=== PATIENT | female | born 1940 | race Caucasian/White ===

== ENCOUNTER 2020-06-13 12:24 | Emergency (ER) | payer MEDICARE, SELFPAY ==
[2020-06-13 12:40] VITALS: BP 144/70; PULSE 83; RESP 20; TEMP 36.6; O2SAT 98
--- NOTE | 2020-06-13 13:16 | ED.URI ---
HPI - URI/Sore Throat General Chief Complaint: Upper Respiratory Infection Stated Complaint: upper respiratory infection Time Seen by Provider: 06/13/20 12:58 Source: patient and RN notes reviewed Mode of arrival: ambulatory Limitations: no limitations History of Present Illness HPI Narrative: Patient presents today with a 7+ day history of right-sided nasal congestion, right ear pain, right sore throat pain. She has tried Tylenol and ibuprofen. Denies cough, fever. No known COVID-19 exposure. Denies history of seasonal allergies. MD elicited complaint: sore throat Related Data Home Medications Medication Instructions Recorded Confirmed calcium carbonate 500 mg calcium 500 mg PO BID 08/23/19 06/13/20 (1,250 mg) tablet multivitamin 1 tablet PO DAILY 09/17/19 06/13/20 Allergies Allergy/AdvReac Type Severity Reaction Status Date / Time aspirin Allergy Unknown Unknown Verified 09/30/19 11:36 Penicillins Allergy Unknown Unknown Verified 09/30/19 11:36 Review of Systems Review of Systems: Narrative: CONSTITUTIONAL: Denies body aches, fever, chills, or sweats. EYES: Denies visual changes, redness, or discharge. ENT: Denies rhinorrhea. + Congestion, sore throat, right ear pain CARDIOVASCULAR: Denies chest pain, palpitations, or edema. RESPIRATORY: Denies cough or dyspnea. GASTROINTESTINAL: Denies abdominal pain, nausea, vomiting, or diarrhea. GENITOURINARY: Denies dysuria or hematuria. SKIN: Denies rash, itching, or wounds. MUSCULOSKELETAL: Denies back pain, joint pain, or myalgia. NEUROLOGIC: Denies headache, numbness, tingling, or weakness. PSYCH: Denies depression or anxiety. [facility] Past Medical History Medical History (Updated 06/13/20 @ 13:18 by Charissa Vargas, [employer], ) Encounter for vitamin deficiency screening Social History Social History Smoking end date: 10/09/78 Alcohol intake: never Gender identity (if verbalized by the patient): Female Comments At time of signature, I have reviewed and agree with nursing past medical, surgical, social and family history unless otherwise noted. Please see nursing chart for further information. There is no relevant family history pertinent to the presenting complaint Exam Narrative: Exam Narrative: GENERAL: Well-appearing, well-nourished, and in no acute distress. HEAD: Normocephalic, atraumatic. EYES: EOMI. No redness or drainage. Conjunctivae normal. ENT: Mucous membranes pink and moist. Nares clear. Nasal turbinates normal. No rhinorrhea. TMs with moderate amount of clear fluid causing bulging. Moderate thin, white post nasal drainage noted in posterior oropharynx. Throat without edema, erythema, or exudate. Uvula midline. NECK: Normal AROM. Supple. No lymphadenopathy. CHEST: No respiratory distress. Clear to auscultation. HEART: Regular rate and rhythm. No murmur appreciated. Normal peripheral pulses. EXTREMITIES: Normal range of motion. No edema. SKIN: Warm, dry, no rash. Capillary refill normal. Normal skin turgor. NEURO: No focal deficits. Alert and oriented x3. Gait steady. PSYCH: Normal affect. No signs of depression or anxiety. Course Vital Signs Vital signs: Vital Signs Temperature 97.9 F 06/13/20 12:40 Pulse Rate 83 06/13/20 12:40 Respiratory Rate 06/13/20 12:40 Blood Pressure 144/70 H 06/13/20 12:40 Pulse Oximetry 98 06/13/20 12:40 Temperature 97.9 F 06/13/20 12:40 Pulse Rate 83 06/13/20 12:40 Respiratory Rate 06/13/20 12:40 Blood Pressure 144/70 H 06/13/20 12:40 Pulse Oximetry 98 06/13/20 12:40 Reviewed. Pt has been instructed to follow up with her PCP regarding her elevated blood pressure today. MDM - URI/Sore Throat Differential Diagnosis Differential diagnosis: Likely upper respiratory infection, otitis media, sinusitis, viral infection, pharyngitis and other (Strep throat, allergic rhinitis, serous otitis media, eustachia
== END 2020-06-13 13:28 | disposition home or self-care (01) ==
PROVIDERS: Emergency Provider Nurse Practitioner; PCP Internal Medicine
DX: J30.9 Allergic rhinitis, unspecified (principal); H65.03 Acute serous otitis media, bilateral
CPT/HCPCS: 99213; G0463

== ENCOUNTER 2022-05-25 10:26 | Emergency (ER) | payer MEDICARE, SELFPAY ==
[2022-05-25 10:36] VITALS: BP 130/62; PULSE 85; RESP 24; TEMP 36.8; O2SAT 98
[2022-05-25 10:37] VITALS: BP 130/62; PULSE 85; RESP 24; TEMP 36.8; O2SAT 98
--- NOTE | 2022-05-25 10:49 | ED.SKABFB ---
HPI - Skin/Abscess/Foreign Bdy General Chief complaint: Skin/Abscess/Foreign Body Stated complaint: Rash Face Time Seen by Provider: 05/25/22 10:49 History of Present Illness HPI narrative: Sravani Espino is an 81 yo female with a PMH of high cholesterol comes with contact dermatitis after working in the yard yesterday. It is all over her neck and the lower part of her face she has a minor amount of lip swelling but no numbness or swelling of the inside of her mouth there is no lesions inside of her mouth she does not take any hypertension medications; Related Data Home Medications Medication Instructions Recorded Confirmed calcium carbonate 500 mg calcium 500 mg PO BID 08/23/19 05/25/22 (1,250 mg) tablet (Calcium 500) multivitamin 1 tablet PO DAILY 11/09/21 05/25/22 Allergies Allergy/AdvReac Type Severity Reaction Status Date / Time aspirin Allergy Mild upset Verified 05/25/22 10:36 stomach Penicillins Allergy Mild Rash Verified 05/25/22 10:36 Review of Systems Review of Systems: CONSTITUTIONAL: Denies fever, chills, sweats. EYES: Denies visual changes, redness, discharge. ENT: Denies rhinorrhea, congestion, sore throat, otalgia. CARDIOVASCULAR: Denies chest pain, palpitations, edema. RESPIRATORY: Denies dyspnea, wheezing, cough GASTROINTESTINAL: Denies abdominal pain, nausea, vomiting, diarrhea. GENITOURINARY: Denies dysuria, hematuria, abnormal discharge SKIN: Has a rash on lower face and neck bilateral after working in yard yesterday NEUROLOGIC: Denies numbness, or focal weakness. PSYCHIATRIC: Denies anxiety or depression. [facility] Past Medical History Medical History Encounter for vitamin deficiency screening High cholesterol Surgical History Surgical History H/O eye surgery Family History Family History Mother Family history of malignant neoplasm of breast in first degree relative Sibling Family history of heart disease in male family member before age 55 Other Diabetes mellitus Social History Social History (Updated 05/25/22 @ 10:59 by Martha Jones CNP) Smoking packs per day: 0.15 Smoking cigarettes per day: 3.0 Years smoked: 20 Smoking pack-years: 3.00 Smoking status: Former smoker Tobacco type: cigarettes Smoking end date: 10/09/78 Alcohol intake: never Substance use: never Gender identity (if verbalized by the patient): Female Sexual Orientation (if Verbalized by the Patient): Straight or Heterosexual Comments At time of signature, I agree with nursing past medical, surgical, social and family history. There is no relevant family history pertinent to the presenting complaint. Exam Narrative: GENERAL: This is a well-nourished, well-developed patient, in mild distress. HEAD: normocephalic, atraumatic. EYES: . Sclera clear/white. Vision is grossly intact. EARS: External ears normal,. Hearing grossly intact. NOSE: External nose normal without nasal discharge, nares without redness, no rhinorrhea. THROAT: Mucous membranes moist, no lesions of mouth or lips NECK: Neck supple, non-tender CARDIOVASCULAR: Regular rate and rhythm without murmurs, gallops, or rubs. RESPIRATORY: Clear to auscultation. Breath sounds equal bilaterally. No wheezes, rales, or rhonchi. GASTROINTESTINAL: Not done SKIN: warm, intact with red rash of lower face and neck bilaterally NEURO: awake, alert, and oriented to person, place and time. There were no obvious focal neurologic abnormalities. Steady gait EXTREMITIES: Normal range of motion. BACK: Nontender without deformity Course Course Emergency Course: Patient comes with rash on face and neck after working in the yard yesterday Started on prednisone 60 mg now Taper pack, Pepcid, Benadryl at home Level of Care: Express Care Visit Vital Signs Vital sig
[2022-05-25] MEDS: predniSONE 20 MG TABLET 60 MG PO (11:07)
== END 2022-05-25 11:13 | disposition home or self-care (01) ==
PROVIDERS: Emergency Provider Nurse Practitioner; PCP Internal Medicine
DX: L25.9 Unspecified contact dermatitis, unspecified cause (principal); Z87.891 Personal history of nicotine dependence; E78.00 Pure hypercholesterolemia, unspecified
CPT/HCPCS: 99213; G0463; J7512

== ENCOUNTER 2022-11-17 13:24 | Emergency (ER) | payer MEDICARE, SELFPAY ==
[2022-11-17 13:39] VITALS: BP 128/66; PULSE 100; RESP 18; TEMP 36.6; O2SAT 100
--- NOTE | 2022-11-17 14:11 | ED.URI ---
HPI - URI/Sore Throat General Chief Complaint: Upper Respiratory Infection Stated Complaint: cold symptoms Time Seen by Provider: 11/17/22 14:05 Source: patient, RN notes reviewed and old records reviewed Mode of arrival: ambulatory Limitations: no limitations History of Present Illness HPI Narrative: 81-year-old female who presents to [facility] with over 1 week duration of sinus congestion and drainage with increased cough which has been productive of green mucus, states right sided facial pressure and also right ear pressure.. Patient states she initially had chills when she first started with symptoms but that has subsided. Patient report that she has been taking Mucinex for her symptoms. Patient reports that she has taken a home COVID test which was negative.She states that she has had COVId vaccinations and flu shot and pneumonia shot. MD elicited complaint: cough, rhinorrhea, nasal congestion and sinus pain Onset (ago): week(s) (greater than a week) Consistency: progressively worsening Pain scale (0-10): 4 Description of mucous: green Treatments prior to arrival: other (Mucinex) Related Data Home Medications Medication Instructions Recorded Confirmed multivitamin 1 tablet PO DAILY 11/09/21 11/17/22 Allergies Allergy/AdvReac Type Severity Reaction Status Date / Time aspirin Allergy Mild upset Verified 11/17/22 13:39 stomach Penicillins Allergy Mild Rash Verified 11/17/22 13:39 Review of Systems Review of Systems: CONSTITUTIONAL:Reports malaise, chills, sweats, or fever. EYES: Denies visual changes, redness, or discharge. ENT: Reports rhinorrhea, congestion, sinus pain, right ear otalgia no sore throat. CARDIOVASCULAR: Denies chest pain, palpitations, or edema. RESPIRATORY: Reports productive cough.? Denies dyspnea. GASTROINTESTINAL: Denies abdominal pain, nausea, vomiting, diarrhea SKIN: Denies rash or itching. MUSCULOSKELETAL: Denies myalgia. NEUROLOGIC: reports some right frontal headache. All systems reviewed & are unremarkable except as noted in HPI and below PMFSH Past Medical History Medical History Encounter for vitamin deficiency screening High cholesterol Surgical History Surgical History H/O eye surgery Family History Family History Mother Family history of malignant neoplasm of breast in first degree relative Sibling Family history of heart disease in male family member before age 55 Other Diabetes mellitus Social History Social History Smoking packs per day: 0.15 Smoking cigarettes per day: 3.0 Years smoked: 20 Smoking pack-years: 3.00 Smoking status: Former smoker Tobacco type: cigarettes Smoking end date: 10/09/78 Alcohol intake: never Substance use: never Living arrangements: alone Occupation/Education: retired Gender identity (if verbalized by the patient): Female Sexual Orientation (if Verbalized by the Patient): Straight or Heterosexual Comments At time of signature, agree with nursing past medical, surgical, social and family history. There is no relevant family history pertinent to the presenting complaint Exam Narrative: GENERAL: Well-appearing, well-nourished, and in no acute distress. HEAD: Normocephalic EYES: PERRLA, conjunctivae clear ENT: Nares clear, turbinates edematous and erythematous, clear greenish tinged discharge.right sided facial pressure and frontal headache. Mucous membranes moist. TM pearly moise with dull light reflex bilaterally; no tragal tenderness. Oropharynx erythematous without lesions. Tonsils not enlarged and without exudate, no drooling, no hoarseness, no trismus, uvula midline. NECK: Supple. No lymphadenopathy CHEST: Clear to auscultation, breath sounds equal. No wheezi
== END 2022-11-17 14:24 | disposition home or self-care (01) ==
PROVIDERS: Emergency Provider Registered Nurse; PCP Internal Medicine
DX: J32.9 Chronic sinusitis, unspecified (principal); R05.1 Acute cough; E78.00 Pure hypercholesterolemia, unspecified; Z87.891 Personal history of nicotine dependence
CPT/HCPCS: 99213; G0463